=== PATIENT | male | born 1980 | race Caucasian/White ===

== ENCOUNTER → 2017-05-02 | Outpatient (CLI) | payer OTHER | LOC: COL.RAD 07:29 | DX: I86.1 Scrotal varices (principal) ==

== ENCOUNTER 2018-10-10 07:57 | Outpatient (RCR) | payer OTHER | END 2018-11-04 15:46 | disposition home or self-care (01) | LOC: WSOH 07:57 | DX: S80.02XA Contusion of left knee, initial encounter (principal); M25.562 Pain in left knee; Y93.39 Activity, other involving climbing, rappelling and jumping off; W17.89XA Other fall from one level to another, initial encounter; Y92.89 Other specified places as the place of occurrence of the external cause; Y99.0 Civilian activity done for income or pay; K21.9 Gastro-esophageal reflux disease without esophagitis; F32.9 Major depressive disorder, single episode, unspecified; F41.9 Anxiety disorder, unspecified ==